=== PATIENT | male | born 1970 | race Caucasian/White ===

== ENCOUNTER 2016-06-23 07:47 | Emergency (ER) | payer OTHER ==
[2016-06-23 08:02] VITALS: BP 164/110; PULSE 78; RESP 18; TEMP 98; O2SAT 97
--- NOTE | 2016-06-23 08:38 | UCPHY ---
H & P Time Seen by Provider: 06/23/16 07:52 Patient Type: Established HPI/ROS: 46-year-old male presents complaining left foot pain and swelling that has been intermittent for several years his last episode was approximately 6 months ago this episode has been going on for the last 2-3 days. No fevers or chills no particular trauma. Review of systems General no fever no chills no weakness HEENT no eye pain no eye discharge. 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 Smoking Status: Never smoked Physical Exam: Alert and oriented in no acute distress nontoxic appearance, afebrile Atraumatic normocephalic Neck no JVD Lungs clear to auscultation, no respiratory distress Heart regular rate and rhythm Extremities no cyanosis clubbing edema Left foot-tenderness to palpation at ankle joint however no swelling no edema no ecchymosis no erythema Distal dorsal foot with a 3 x 3 cm area of erythema, no lymphangitic streaks, tenderness to palpation Good capillary refill Sensation intact, full range of motion of digits and ankle and knee Constitutional: Initial Vital Signs Temperature (C) 36.6 C 06/23/16 08:00 Heart Rate 78 06/23/16 08:00 Respiratory Rate 18 06/23/16 08:00 Blood Pressure 164/110 H 06/23/16 08:00 O2 Sat (%) 97 06/23/16 08:00 O2 Delivery Mode Room Air Allergies/Adverse Reactions: No Known Allergies Allergy (Unverified 11/22/15 15:45) Home Medications: Medication Instructions Recorded Lisinopril 10 mg PO DAILY #60 tablet 11/22/15 methylPREDNISolone [Medrol Dose 1 each PO AD #1 ea 06/23/16 Adeel] Medical Decision Making ED Course/Re-evaluation: Patient seen and evaluated for left foot pain and ankle pain intermittent over the last several years with his last episode being approximately 6 months ago No prior diagnosis of gout Lab sent CBC, sed rate, uric acid all within normal limits X-rays of foot and ankle negative for significant spurring or arthritis negative for soft tissue swelling Impression Possible gout Plan Medrol Dosepak walking boot Follow-up with podiatry and/or primary care physician - Data Points Laboratory Results: Laboratory Results 06/23/16 08:43 06/23/16 08:43 06/23/16 08:43 WBC 9.15 10^3/uL (3.80-9.50) RBC 4.98 10^6/uL (4.40-6.38) Hgb 15.0 g/dL (13.7-17.5) Hct 43.9 % (40.0-51.0) MCV 88.2 fL (81.5-99.8) MCH 30.1 pg (27.9-34.1) MCHC 34.2 g/dL (32.4-36.7) RDW 12.8 % (11.5-15.2) Plt Count 209 10^3/uL (150-400) MPV 10.8 fL (8.7-11.7) Neut % (Auto) 74.9 H % (39.3-74.2) Lymph % (Auto) 12.3 L % (15.0-45.0) Falls % (Auto) 11.7 % (4.5-13.0) Eos % (Auto) 0.2 L % (0.6-7.6) Baso % (Auto) 0.4 % (0.3-1.7) Nucleat RBC Rel Count 0.0 % (0.0-0.2) Absolute Neuts (auto) 6.84 H 10^3/uL (1.70-6.50) Absolute Lymphs (auto) 1.13 10^3/uL (1.00-3.00) Absolute Monos (auto) 1.07 H 10^3/uL (0.30-0.80) Absolute Eos (auto) 0.02 L 10^3/uL (0.03-0.40) Absolute Basos (auto) 0.04 10^3/uL (0.02-0.10) Absolute Nucleated RBC 0.00 10^3/uL (0-0.01) Immature Gran % 0.5 % (0.0-1.1) Immature Gran # 0.05 10^3/uL (0.00-0.10) ESR 15 MM/HR (0-15) Sodium 142 mEq/L (134-144) Potassium 4.5 mEq/L (3.5-5.2) Chloride 101 mEq/L (97-110) Carbon Dioxide 27 mEq/l (22-31) Anion Gap 14 mEq/L (8-16) BUN 12 mg/dL (7-23) Creatinine 1.2 mg/dL (0.7-1.3) Estimated GFR > 60 Glucose 84 mg/dL (70-100) Uric Acid 7.0 mg/dL (3.5-8.5) Calcium 9.4 mg/dL (8.5-10.4) Total Bilirubin 1.2 mg/dL (0.1-1.4) AST 20 IU/L (17-59) ALT 31 IU/L (21-72) Alkaline Phosphatase 74 IU/L (38-126) Total Protein 8.0 g/dL (6.3-8.2) Albumin 4.2 g/dL (3.5-5.0) Departure - Departure Disposition: Home, Routine, Self-Care Clinical Impression: Gout attack Condition: Good Instructions: Gout (ED), Low Purine Diet (ED) Referrals: Ervin Penn MD [Primary Care Provider] - As per Instructions Prescriptions: methylPREDNISolone [Medrol Dose Adeel] 1 each PO AD #1 ea - PQRS PQRS Measurement: na
[2016-06-23 08:54] LABS: % IMMATURE GRANULYOCYTES 0.5 % (0.0-1.1); ABSOLUTE IMMATURE GRANULOCYTES 0.05 10^3/uL (0.00-0.10); ADD DIFF? NO; ADD MORPH? NO; ADD SCAN? NO; ATYPICAL LYMPHOCYTE FLAG 10 (0-99); FRAGMENT RBC FLAG 0 (0-99); HEMATOCRIT 43.9 % (40.0-51.0); LEFT SHIFT FLG 0 (0-99); LIPEMIA HEMOLYSIS FLAG 90 (0-99); MEAN CELL HEMOGLOBIN 30.1 pg (27.9-34.1); MEAN CELL HEMOGLOBIN CONCENTR. 34.2 g/dL (32.4-36.7); MEAN CELL VOLUME 88.2 fL (81.5-99.8); MEAN PLATELET VOLUME 10.8 fL (8.7-11.7); PLATELET CLUMPS FLAG 0 (0-99); PLATELET COUNT 209 10^3/uL (150-400); RED BLOOD CELL COUNT 4.98 10^6/uL (4.40-6.38); RED CELL DISTRIBUTION WIDTH 12.8 % (11.5-15.2)
[2016-06-23 09:03] LABS: SEDIMENTATION RATE 15 MM/HR (0-15)
[2016-06-23 09:08] LABS: ALANINE AMINOTRANSFERASE 31 IU/L (21-72); ALBUMIN 4.2 g/dL (3.5-5.0); ALKALINE PHOSPHATASE 74 IU/L (38-126); ANION GAP 14 mEq/L (8-16); ASPARTATE AMINOTRANSFERASE 20 IU/L (17-59); BILIRUBIN,TOTAL 1.2 mg/dL (0.1-1.4); CALCIUM 9.4 mg/dL (8.5-10.4); CARBON DIOXIDE 27 mEq/l (22-31); CHLORIDE 101 mEq/L (97-110); CREATININE 1.2 mg/dL (0.7-1.3); GLOMERULAR FILTRATION RATE > 60; GLUCOSE 84 mg/dL (70-100); POTASSIUM 4.5 mEq/L (3.5-5.2); SODIUM 142 mEq/L (134-144)
--- NOTE | 2016-06-23 09:11 | DX ---
1. LEFT ANKLE, Three Views HISTORY: Pain, without trauma. FINDINGS: There is possibly a small ankle joint effusion. No fracture, arthritis or dislocation is id entified. The talar dome looks normal. There is no soft tissue gas or radiopaque foreign material. Ov erall mineralization is normal. IMPRESSION: Possible small ankle joint effusion. Otherwise negative.. 2. LEFT FOOT, 2 views HISTORY: Pain without trauma COMPARISON: None FINDINGS: Mineralization is normal. No evidence for arthritis.. No soft tissue calcification or soft tissue gas. No arthritis identified. IMPRESSION: No source for pain identified.
== END 2016-06-23 09:24 | disposition home or self-care (01) ==
LOC: CED 07:47
DX: M10.9 Gout, unspecified (principal); I10 Essential (primary) hypertension
CPT/HCPCS: 73610-PO; 73620-PO; 80053-PO; 84550-PO; 85025-PO; 85652-PO; 99214-PO; G0463-PO; L4386

== ENCOUNTER 2017-09-09 00:41 | Inpatient (IN) | payer OTHER ==
--- NOTE | 2017-09-09 00:53 | CPEKG ---
Heart Rate: 76 RR Interval: 789 P-R Interval: 192 QRSD Interval: 84 QT Interval: 368 QTC Interval: 414 P [place]: 52 QRS [place]: 10 T Wave [place]: 13 EKG Severity - BORDERLINE ECG - EKG Impression: SINUS RHYTHM EKG Impression: PROBABLE LEFT ATRIAL ABNORMALITY EKG Impression: T coving in V6, subtle, not seen an EKG from November of 2015 EKG Impression: BORDERLINE R WAVE PROGRESSION, ANTERIOR LEADS Electronically Signed By: Ben Wiley 09-Sep-2017 02:17:58
[2017-09-09] MEDS ORDERED: ASPIRIN 81 MG CHEWABLE TAB PO ONE (01:08)
[2017-09-09] MEDS ORDERED: LIDOCAINE 2% VISCOUS 15 ML UDCUP PO ONE (01:09)
[2017-09-09] MEDS ORDERED: DICYCLOMINE 10 MG CAP PO ONE (01:09)
[2017-09-09] MEDS ORDERED: MAG HYDROX/AL HYDROX/SIMETH 30 ML UDCUP PO ONE (01:09)
[2017-09-09] MEDS ORDERED: HYOSCYAMINE SULFATE 0.125 MG TAB PO ONE (01:12)
[2017-09-09] MEDS ORDERED: HYOSCYAMINE SULFATE 0.125 MG TAB ONE (01:16)
[2017-09-09] MEDS ORDERED: LORazepam 2 MG/ML INJ IVP ONE (01:25)
--- NOTE | 2017-09-09 01:26 | EDPHY ---
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 no nausea/diaphoresis/numbness or tingling Time Seen by Provider: 09/09/17 00:50 HPI/ROS: CHIEF COMPLAINT: chest discomfort HISTORY OF PRESENT ILLNESS: Chest discomfort, tightness now resolving This is a medically stable 47-year-old male with a prior history of hypertension and borderline LVH as seen on EKG this past March. Of note, is that he has not had an echocardiogram evaluation in light of that prior EKG. He has though been put on hypertension medicine and his office blood pressure was 117 systolic most recently. He was feeling well earlier in the day. 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 That said, he does not recall any specific injury or straining. He did go out to dinner although that was earlier in the day around 7:00 p.m. He went to bed at 11 but was unable to fall asleep before the onset of a mild chest tightness that began at approximately 11:30 p.m.. He thereby got up for some water, it went away transiently and then returned when he went to bed and laid on his left side, rehabilitation manager to later. It is been virtually present ever since, mild to moderate in nature and is only mild now at this point in time with a 1/10. While he did not have any shortness of breath or overt diaphoresis he did feel a little clammy. This is a tightness type sensation, localized to the central chest, does not radiate to the arms or jaw or any portion of the back whatsoever. It is nonpleuritic. He has never had this before. There is no sense of water brash. He is not want one to get reflux or acid peptic disease so he did not have anything else in the household to take. Did not take any aspirin. He did have a fall with the injury this past April. It was not so bad at that point that he had to have a knee immobilizer. He did seem more re-injury to while hiking approximately 2 weeks ago. Was wearing some form of neoprene sleeve with some placing to it but not a stiff splint per se. He was able to flex the knee somewhat. MRI and showed a torn ACL but no specific surgical date is planned. Cardiac Risk Factors: DM: No HTN: yes High Chol: No Smoking: No Family History: No, father with the liver and kidney transplant Obesity: yes SLE type illenss: No PE/DVT risk factors Prior DVT/PE: No Immobilization: No Splint/Cast: No did wear a brace on his recent knee injury but it was not a stiff brace. Surgery in past 3 months: no Family history of hypercoagulable syndrome: No Unilateral leg swelling: No Obesity: yes, Slight Hypertension yes Known Aortic aneurysm No Bicuspid aortic Valve No Aortic Valve disease No Family Hx of aortic dieseae No Polycystic Kidney Disease No Collagen vascular disease No Aortic Regurg Murmur No Aortic instrumentation recent No Blunt trauma, recent No REVIEW OF SYSTEMS: Constitutional: No fever, no chills. Eyes: No discharge ENT: No sore throat. Cardiovascular: See above Respiratory: No cough, shortness of breath, or wheezing. See above Gastrointestinal: No nausea vomiting or diarrhea. No abdominal pain. Genitourinary: No hematuria or frequency. Musculoskeletal: No back pain. Skin: No rashes. Neurological: No headache. 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 Afebrile. Normal phonation. No respiratory distress. Eyes: Pupils equal and round no pallor or injection. No icterus ENT, Mouth: Mucous membranes moist Pharynx without erythema or exudate. TM Clear. Neck: No adenopathy. Supple. No JVD. Trachea in midline. Respiratory: There are no retractions, lungs are clear to auscultation. Chest wall: Nontender to palpation. No crepitus. Cardiovascular: Regular rate and rhythm. Abdomen: Soft and nontender, no masses, bowel sounds normal. Femoral pulses equal. Neurological: Ox3. No motor weakness. Sensation intact. Gait nl. Skin: Warm and dry, no rashes. Musculoskeletal: No joint swelling. Extremities: No edema. Homans sign negative. No cords. Psychiatric: Normal affect. There is no agitation Constitutional: Initial Vital Signs Heart Rate 85 09/09/17 00:53 Respiratory Rate 21 H 09/09/17 00:53 Blood Pressure 171/111 H 09/09/17 00:53 O2 Sat (%) 93 09/09/17 00:53 O2 Delivery Mode Room Air Allergies/Adverse Reactions: No Known Allergies Allergy (Unverified 09/09/17 00:51) Home Medications: Medication Instructions Recorded Garlic 09/09/17 Losartan/Hydrochlorothiazide 09/09/17 [Losartan-Hctz 100-12.5 mg Tab] [place]-3/Dha/Epa/Fish Oil [Fish Oil 09/09/17 1,000 mg Softgel] Medical Decision Making - Diagnostics EKG Interpretation: His initial EKG shows mild T-wave coving laterally in V6. Somewhat different than that of November of 2015. Minimally so. Normal sinus rhythm. No Q-waves. R- wave progression is probably lead placement. See trace master for official reading Follow-up EKG done approximately 1 hr later showed resolution of the borderline changes in V6. Continued borderline R wave changes across the precordium. Essentially improved from the EKG 1 hr earlier. Imaging Results: Chest x-ray: Two view chest. Interpreted by [me, contemporaneously]. Films [viewed] by me on the PACS system. Normal mediastinum. Normal lung narayan. No effusions. Normal chest. Imaging: I viewed and interpreted images myself ED Course/Re-evaluation: He was given a initial dose of aspirin followed by a GI cocktail though at that point his discomfort was 1/10 prep. Later, when I had a conversation with the approximately half an hour later his discomfort had resolved completely and he was having no symptoms at that time. Initially he was also given a dose of Ativan 0.5 and his blood pressure did come down to 150/100 from the initial 170/110. Thereby an additional management consisted of nitropaste 1 in. Upon initial evaluation his perc score is 1, and the heart score pending troponin levels is 3. Thereby repeat troponins were arranged for, Ultimately the initial troponin is borderline at 0.05, bring his heart score of 4. Thus I called the admitting machine operator farmworker at [facility], Dr. Nguyen, and arranged for transfer. His O2 sat continued to be around 93 thus a little bit of Oxy was given as well as a D-dimer. His only other risk factor would be that of the recent bracing which was certainly was not a solid bracing to qualify as immobilization. This D-dimer was ultimately negative at less than 0.27. The BP settled nicely on the topical nitropaste to 137/98. Differential Diagnosis: Differential diagnosis includes but is not limited to the following: ACS, myocardial infarction, pneumothorax, pleurisy, pulmonary embolus, CHF, Pneumonia, bronchospasm, Asthma, anxiety, muscle strain. - Data Points Laboratory Results: 09/09/17 09/09/17 00:55 00:55 D-Dimer < 0.27 ug/mLFEU ug/mLFEU (0.00-0.50) Troponin I 0.051 ng/mL H ng/mL (0.000-0.034) Medications Given: Discontinued Medications Al Hydroxide/Mg Hydroxide (Maalox Susp) 30 ml PO EDNOW ONE Stop: 09/09/17 01:10 Last Admin: 09/09/17 01:24 Dose: 30 ml Aspirin (Aspirin) 324 mg PO EDNOW ONE Stop: 09/09/17 01:09 Last Admin: 09/09/17 01:12 Dose: 324 mg Dicyclomine HCl (Bentyl) 10 mg PO EDNOW ONE Stop: 09/09/17 01:10 Last Admin: 09/09/17 01:26 Dose: Not Given Hyoscyamine Sulfate (Levsin, Hyomax-Sl) 0.25 mg PO ONCE ONE Stop: 09/09/17 01:13 Last Admin: 09/09/17 01:24 Dose: 0.25 mg Lidocaine (Lidocaine 2% Viscous) 5 ml PO EDNOW ONE Stop: 09/09/17 01:10 Last Admin: 09/09/17 01:24 Dose: 5 ml Lorazepam (Ativan Injection) 0.5 mg IVP ONCE ONE Stop: 09/09/17 01:26 Last Admin: 09/09/17 01:32 Dose: 0.5 mg Nitroglycerin (Nitro-Bid 2%) 1 inch TP EDNOW ONE Stop: 09/09/17 02:05 Last Admin: 09/09/17 02:19 Dose: 1 inch Departure - Departure Disposition: [facility] Inpatient Acute Clinical Impression: Chest pain Qualifiers: Chest pain type: precordial pain Qualified Code(s): R07.2 - Precordial pain Hypertension Qualifiers: Hypertension type: essential hypertension Qualified Code(s): I10 - Essential ( primary) hypertension Condition: Good
[2017-09-09] MEDS ORDERED: ONDANSETRON DISINTEGRATING 4 MG TAB PO PRN (01:51)
[2017-09-09] MEDS ORDERED: ONDANSETRON 4 MG/2 ML VIAL IVP PRN (01:51)
[2017-09-09] MEDS ORDERED: NITROGLYCERIN 2% 1 GM PACKET TP ONE (02:04)
--- NOTE | 2017-09-09 03:01 | CPEKG ---
Heart Rate: 78 RR Interval: 769 P-R Interval: 192 QRSD Interval: 90 QT Interval: 372 QTC Interval: 424 P [place]: 56 QRS [place]: 12 T Wave [place]: 7 EKG Severity - BORDERLINE ECG - EKG Impression: SINUS RHYTHM EKG Impression: Coving in V6 seen in EKG 1 hours earlier has normalized. EKG Impression: BORDERLINE R WAVE PROGRESSION, ANTERIOR LEADS Electronically Signed By: Ben Wiley 09-Sep-2017 03:27:35
--- NOTE | 2017-09-09 03:46 | PDGENHP ---
History and Physical - Chief Complaint Chest pain - History of Present Illness 47 yo M w/ hx of HTN presents with chest pain. Patient went out to eat last evening. After getting home and laying down he began to notice central chest discomfort. He felt clammy but denies other associated symptoms. The pain was worst when laying on his left side and improved when he got up and walked around. At worst he rated the pain 5/10, the pain was very faint by the time he arrived to the [facility]. He is symptom free now. At the [facility] his BP was noted to be elevated and his troponin in the indeterminate range so he is being admitted for further work-up. History Information - Allergies/Home Medication List Allergies/Adverse Reactions: No Known Allergies Allergy (Unverified 09/09/17 00:51) Home Medications: Garlic 09/09/17 [Last Taken Unknown] Losartan/Hydrochlorothiazide [Losartan-Hctz 100-12.5 mg Tab] 09/09/17 [Last Taken Unknown] [place]-3/Dha/Epa/Fish Oil [Fish Oil 1,000 mg Softgel] 09/09/17 [Last Taken Unknown] I have personally reviewed and updated: family history, medical history - Past Medical History hypertension - Family History Positive for: CAD - Social History Smoking Status: Former smoker (Chewed tobacco for about 20 years) Alcohol Use: None Drug Use: None (Can valvular disease he the the the my Risk) Review of Systems Review of Systems: ROS: 10pt was reviewed & negative except for what was stated in HPI & below Physical Exam Physical Exam: Temp Pulse Resp BP Pulse Ox 37 C 77 18 151/94 H 95 09/09/17 02:40 09/09/17 02:40 09/09/17 02:40 09/09/17 02:40 09/09/17 02:40 O2 (L/minute) 1 Constitutional: no apparent distress, not in pain Eyes: PERRL, EOMI Ears, Nose, Mouth, Throat: moist mucous membranes, no oral mucosal ulcers Cardiovascular: regular rate and rhythym, no murmur, rub, or gallop Respiratory: no respiratory distress, clear to auscultation Gastrointestinal: normoactive bowel sounds, soft, non-tender abdomen Skin: warm, normal color Musculoskeletal: full muscle strength, no muscle tenderness Neurologic: AAOx3, CN II-XII Intact Psychiatric: interacting appropriately, not anxious Lab Data & Imaging Review D-Dimer < 0.27 ug/mLFEU (0.00-0.50) 09/09/17 00:55 Troponin I 0.051 ng/mL (0.000-0.034) H 09/09/17 00:55 Visualized and Interpreted Chest x-ray results: Yes Chest X-Ray results: no infiltrate Visualized and Interpreted EKG results: Yes EKG Interpretation: Positive for: normal sinsus rhythm Assessment & Plan Assessment: 47 yo M w/ HTN presents with chest pain. Plan: 1. Chest pain - Rather atypical from a cardiac standpoint in that pain was worse when laying on left side and improved with ambulation. However, obesity, tobacco use, and family history are pertinent risk factors. Initial troponin indeterminate at 0.05 and ECG without signs of acute ischemia. Of note, BP very elevated upon arrival to [facility] (171/111, MAP 131), which may be playing a role. He is now chest pain free. - Admit to PCU for observation - Monitor on telemetry, trend cardiac enzymes - Treadmill stress test ordered for inpatient risk stratification (may have to convert to nuclear if cannot tolerate 2/2 R knee injury) 2. Indeterminate troponin - Perhaps 2/2 LV strain from uncontrolled BP. ACS r/o as above. ECG without signs of acute ischemia, D-dimer negative. 3. Uncontrolled HTN - BP very elevated upon arrival to [facility] (171/111, MAP 131). Patient thinks he may have forgotten to take his BP meds yesterday morning. - Continue home medications Diet - NPO pending ACS r/o Code - Full Ppx - LMWH dispo - Admit under observation status
--- NOTE | 2017-09-09 10:51 | PDCARCONS ---
Cardiology Consult Reason for Consult: Chest discomfort, positive troponin, abnormal EKG Chief Complaint: Chest pain Requesting Physician: Dr. Deedee Hernandez History of Present Illness: 47-year-old very pleasant gentleman. I visited with him on 2 [facility]. Dr. Deedee Hernandez asked me to consult on him because of complaints of chest pain. Last night after dinner he started having retrosternal burning chest discomfort. This is different than his usual GERD symptoms. Pain was described as burning and some heaviness in the retrosternal area which lasted until he came to the emergency department and received GI cocktail. He also received some Valium. I was asked to visit with him because his troponin levels were elevated this morning. At the time of examination, patient is pain-free and does not offer any complaints History Information - Allergies/Home Medication List Allergies/Adverse Reactions: No Known Allergies Allergy (Unverified 09/09/17 00:51) Home Medications: Losartan/Hydrochlorothiazide [Losartan-Hctz 100-25 mg Tab] 1 each PO DAILY 09/09 [Last Taken 09/07/17] I have personally reviewed and updated: family history, medical history, social history, surgical history Past Medical History: - Past Medical History hypertension - Surgical History Reports: no pertinent surgical hx - Social History Smoking Status: Former smoker (Chewed tobacco for about 20 years) Alcohol Use: None (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 drinks a day but has cut back over the last 1-2 years) Drug Use: None (Can valvular disease he the the the my Risk) Physical Exam Physical Exam: Temp Pulse Resp BP Pulse Ox 36.7 C 61 9 L 122/81 H 95 09/09/17 08:00 09/09/17 08:00 09/09/17 08:00 09/09/17 08:00 09/09/17 08:00 O2 (L/minute) 1 Constitutional: no apparent distress, appears nourished, not in pain Eyes: PERRL, EOMI Ears, Nose, Mouth, Throat: moist mucous membranes, hearing normal Cardiovascular: regular rate and rhythym, no murmur, rub, or gallop Respiratory: no respiratory distress, no rales or rhonchi Gastrointestinal: normoactive bowel sounds, soft, non-tender abdomen Genitourinary: no bladder fullness Skin: warm, normal color Musculoskeletal: full muscle strength Neurologic: AAOx3 Psychiatric: interacting appropriately, not anxious, not encephalopathic Lab and Imaging 09/09/17 05:45 D-Dimer < 0.27 ug/mLFEU (0.00-0.50) 09/09/17 00:55 Sodium 142 mEq/L (135-145) 09/09/17 05:45 Potassium 4.0 mEq/L (3.5-5.2) 09/09/17 05:45 Chloride 103 mEq/L (97-110) 09/09/17 05:45 Carbon Dioxide 26 mEq/l (22-31) 09/09/17 05:45 Anion Gap 13 mEq/L (8-16) 09/09/17 05:45 BUN 16 mg/dL (7-23) 09/09/17 05:45 Creatinine 1.1 mg/dL (0.7-1.3) 09/09/17 05:45 Estimated GFR > 60 09/09/17 05:45 Glucose 98 mg/dL (70-100) 09/09/17 05:45 Calcium 9.0 mg/dL (8.5-10.4) 09/09/17 05:45 Troponin I 0.493 ng/mL (0.000-0.034) H 09/09/17 05:45 Visualized and Interpreted EKG results: Yes EKG additional interpertation: Initial EKG normal sinus rhythm with some ST depression in lead V6 which resolved after 1 hr of arrival to the emergency department A/P Assessment: 1. Non ST-elevation myocardial infarction 2. Hypertension Plan: 47-year-old male presenting with non ST elevation myocardial infarction. 1st troponin was 0.05, 2nd troponin is 0.48. He had chest discomfort with dynamic EKG changes. Echocardiogram shows mild inferolateral hypokinesis at the base. Given his history of hypertension, age, abnormal EKG, positive troponin and mildly abnormal echocardiogram, he meets criteria for non ST elevation [place]. Diagnostic and treatment options including perfusion stress test versus coronary angiography were discussed with him. Given above findings I recommend coronary angiography. Risks of the procedure including , mi, CVA, cardiac tamponade, vascular access complications, anaphylaxis, renal failure etc I were discussed with him at length. As an alternative we also discussed medical therapy only without coronary angiography. I told him that he will be started on beta-blockers and statins regardless and these should be continued lifelong. Noting above options, he wants to move forward with coronary angiography. This will be scheduled this morning after I contact my interventional partner Dr. Oswaldo Michelle
[2017-09-09] MEDS: ENOXAPARIN 40 MG/0.4 ML SYR SC SCH ×2 (10:56→11:37)
--- NOTE | 2017-09-09 10:58 | HOSPPROG ---
Hospitalist Progress Note Assessment/Plan: 47-year-old man presents with chest pain. He has risk factors including hypertension and tobacco use. He also has a relative with heart disease # chest pain and elevated troponin. Discussed with Cardiology he will proceed to angiogram today. * Angiogram * Risk factor modification, patient will need statin beta-ju if he has heart disease # hypertension continue usual medications monitor Subjective: Patient new to me and chart reviewed. Had 2 episodes of chest pain yesterday the 2nd of which brought him into the emergency department he has been pain-free since then Objective: Vital Signs Temp Pulse Resp BP Pulse Ox 36.7 C 61 9 L 122/81 H 95 09/09/17 08:00 09/09/17 08:00 09/09/17 08:00 09/09/17 08:00 09/09/17 08:00 Laboratory Results 09/09/17 05:45 09/08/17 09/09/17 09/10/17 05:59 05:59 05:59 Intake Total 200 Balance 200 - Physical Exam Constitutional: no apparent distress, appears nourished, not in pain Eyes: PERRL, EOMI Ears, Nose, Mouth, Throat: moist mucous membranes Cardiovascular: regular rate and rhythym, no murmur, rub, or gallop Respiratory: no respiratory distress, clear to auscultation Gastrointestinal: normoactive bowel sounds, soft, non-tender abdomen Genitourinary: no bladder fullness Skin: warm Musculoskeletal: full muscle strength Neurologic: AAOx3 Psychiatric: interacting appropriately, not anxious ICD10 Worksheet Patient Problems: Problems Problem Status Onset Chest pain Acute Hypertension Acute
[2017-09-09] MEDS ORDERED: LIDOCAINE 1% 300 MG/30 ML SDV ONE (11:36)
[2017-09-09] MEDS ORDERED: IOPAMIDOL (ISOVUE-370) 150 ML BTL IV ONE ×2 (11:37→12:39)
[2017-09-09] MEDS ORDERED: VERAPAMIL 5 MG/2 ML VIAL ONE (11:37)
[2017-09-09] MEDS ORDERED: fentaNYL 100 MCG/2 ML INJ ONE (11:37)
[2017-09-09] MEDS ORDERED: HEPARIN 10,000 UNIT/10 ML MDV (1,000 UNIT/ML) ONE (11:37)
[2017-09-09] MEDS ORDERED: MIDAZOLAM 2 MG/2 ML VIAL ONE (11:37)
--- NOTE | 2017-09-09 11:41 | ECHO ---
[email or web address] [address] [address] Main: [phone] Fax: Transthoracic Echocardiogram Name: ILANA OSULLIVAN MR#: [id number] Study Date: 09/09/2017 Study Time: 09:59 AM Date of : 1970 Age: 47 year(s) Height: 182.9 cm (72 in.) Weight: 105.69 kg (233 lb.) BSA: 2.27 m2 Gender: Male Examination: Echo Indication: Chest Pain Image Quality: Adequate Contrast: Requested by: London Madsen BP: 122 mmHg/81 mmHg Heart Rate: Rhythm: Normal sinus rhythm Indication: Chest Pain Procedure Staff Gas Regulator Repairer: oR Sewell RD Reading Physician: London Madsen MD Requesting Provider: Conclusions: Normal global systolic LV function. Subtle posterolateral hypokinesis noted in the short axis view. Mild to moderate mitral regurgitation. Measurements: Chambers Valvular Assessment AV/MV Valvular Assessment TV/PV Normal Normal Normal Name Value Range Name Value Range Name Value Range Ao Ariane (MM): 3.8 cm (2.2 cm-3.7 AV Vmax: 1.27 m/s (1 m/s-1.7 PV Vmax: 0.94 m/s (0.6 m/s-0.9 cm) m/s) m/s) IVSd (2D): 1.0 cm (0.6 cm-1.1 AV maxP mmHg ( - ) PV PGmax: 4 mmHg ( - ) cm) LVOT Vmax: 1.16 m/s (0.7 m/s-1.1 LVDd (2D): 4.8 cm (4.2 cm-5.9 m/s) cm) MV E Vmax: 0.59 m/s ( - ) LVDs (2D): 3.2 cm (2.1 cm-4 MV A Vmax: 0.74 m/s ( - ) cm) MV E/A: 0.80 ( - ) LVPWd (2D): 0.9 cm (0.6 cm-1 cm) LVEF (BP): 59 % (>=55 %) RVDd(2D): 2.2 cm (1.9 cm-3.8 cmmm) Continued Measurements: Chambers Valvular Assessment AV/MV Name Value Name Value LADs: 3.3 cm MV DecTime: 264 m/s LADs Lon.8 cm LA Area: 15.6 cm2 LA Volume: 54 ml Patient: ILANA OSULLIVAN Study Date: 09/09/2017 Page 1 of 2 09:59 AM LA Volume Index: 23.8 ml/m2 RA Area: 10.7 cm2 Additional Vessels Name Value Ao Ascendin.1 cm Findings: Left Ventricle: Normal size left ventricle. No LV hypertrophy. Normal global systolic LV function. EF is 59 %. Normal diastolic LV function. Subtle posterolateral hypokinesis noted in the short axis view. Right Ventricle: Normal size right ventricle. Normal RV function. Left Atrium: The left atrium is normal in size. Right Atrium: The right atrium is normal in size. Mitral Valve: The mitral valve is normal in appearance and function. Mild to moderate mitral regurgitation. No mitral stenosis is present. Aortic Valve: The aortic valve is tri-leaflet and functions normally. Trivial aortic valve regurgitation. No aortic valve stenosis is present. Tricuspid Valve: The tricuspid valve is normal in appearance and function. There is no significant tricuspid valve regurgitation. The pulmonary artery pressure is normal. Pulmonic Valve: The pulmonic valve is normal in appearance and function. There is no pulmonic regurgitation seen. Aorta: The aorta is normal. Normal size aortic root measuring 3.8 cm. Normal size ascending aorta measuring 3.1 cm. IVC: The IVC is normal sized. Pericardium: No pericardial effusion. (No Signature Object) Patient: ILANA OSULLIVAN Study Date: 09/09/2017 Page 2 of 2 09:59 AM [id number]
[2017-09-09] MEDS: ATORVASTATIN CALCIUM 20 MG TAB PO SCH (11:43)
[2017-09-09] MEDS: METOPROLOL SUCCINATE XR 25 MG TAB PO SCH (11:43)
[2017-09-09] MEDS: LOSARTAN/HCTZ 50/12.5 1 TAB PO SCH (11:43)
[2017-09-09] MEDS: ASPIRIN EC 325 MG TAB PO SCH (11:44)
--- NOTE | 2017-09-09 12:01 | PDPROPOC ---
Sedation Plan of Care Sedation Plan of Care: vital signs stable, mental status noted, patient educated of risks, benefits, alternatives, patient can tolerate sedation ASA Classification: ASA 2 Planned drugs: fentanyl, midazolam Mallampati Score: Class 1 Mallampati Reference Image: Patient passed 3-3-2 rule?: Yes
[2017-09-09] MEDS ORDERED: TICAGRELOR 90 MG TAB ONE (12:45)
[2017-09-09] MEDS ORDERED: NITROGLYCERIN 1,500 MCG/15 ML VIAL MISC ONE (12:53)
[2017-09-09] MEDS ORDERED: NITROGLYCERIN 0.4 MG BTL SL PRN (13:21)
[2017-09-09] MEDS ORDERED: TICAGRELOR 90 MG TAB PO ONE (13:21)
[2017-09-09] MEDS ORDERED: ATROPINE SULFATE 1 MG/10 ML SYR IVP PRN (13:21)
--- NOTE | 2017-09-09 13:28 | PDDXCAT ---
Diagnostic Cath Note - . Date: 09/09/17 Ssis Etl Developer: Miguel Angel Indication: other (NON STEMI) - Procedure Access: right wrist Procedure: left heart catheterization, coronary angiography, left ventriculogram - Materials Left Heart Cath size: 5F Left Heart Cath materials: standard multipack (JL4, JR4, pigtail) - Findings-Left Heart Catheterization LM: Unobstructed LAD: Unobstructed LCX: 100% occluded in the body. RCA: 40% proximal RCA stenosis. 40% distal RCA stenosis. EDP: 15 mm of mercury LVEF: 60% Wall motion: Mild inferolateral hypokinesis Complications: None Estimated blood loss: <50ml Closure method: TR Band Assessment: Non ST segment elevation myocardial infarction with ongoing chest pressure and occlusion of the circumflex artery. Nonobstructive atherosclerosis involving the right coronary artery. Normal LV function with normal filling pressures. Plan: PCI Intervention: Procedure: PCI and stenting of the dominant circumflex artery. After reviewing diagnostic angiogram shows like to proceed with emergent PCI. Patient was anticoagulated with heparin. Therapeutic ACT was confirmed at 330. Using a 6 Urdu EBU 3.5 guiding catheter the left main coronary selectively intubated. Using a 0.014 intuition wire the stenosis was crossed. Using a 2 mm x 12 compliant balloon single inflation was performed reestablishing antegrade flow. Attempts at crossing with a 2.5 x 12 mm synergy stent were made but failed. There was poor guiding support with prolapse of the wire out of the vessel. The guide catheter was replaced with a 6 Urdu EBU 3.75 guiding catheter. Using a 0.014 agricultural aircraft pilot 50 wire the stenosis was read crossed. The lesion was re-angioplasty using a 2 mm balloon. There was significant improvement in distal flow. 2.5 x 12 mm synergy stent was placed. It was deployed using a single inflation. Repeat angiogram shows sewed dissection distal. 2.25 x 8 mm synergy stent was placed distally and deployed using a single inflation. Stent balloon was used to cover the overlap. 2.75 noncompliant balloon was used at high pressure within both stents. Patient was administered intracoronary nitroglycerin. Final orthogonal angiogram showed DIAMANTE grade 3 flow. Following completion of this procedure left ventriculogram was performed. For details please see above. Conclusions: Non ST segment elevation myocardial infarction with thrombotic occlusion of the circumflex artery status post successful PCI and stenting. New His patient became pain-free after initial inflation. He has taken to telemetry for continued care. Aggressive secondary prevention. Dual antiplatelet therapy with aspirin and Brilinta. High-dose statin therapy with 80 mg of atorvastatin. Continue ARB and beta-ju. Sedation: 2 mg Versed 100 mcg of fentanyl. Radiation 1440 mGy. 19.5 min of fluoroscopy. Contrast: 340 cc. Patient Problems: Problems Problem Status Onset Chest pain Acute Hypertension Acute
--- NOTE | 2017-09-09 13:35 | CPEKG ---
Heart Rate: 64 RR Interval: 938 P-R Interval: 200 QRSD Interval: 82 QT Interval: 400 QTC Interval: 413 P [place]: 35 QRS [place]: 33 T Wave [place]: 24 EKG Severity - ABNORMAL ECG - EKG Impression: SINUS RHYTHM EKG Impression: ABNRM R PROG, CONSIDER ASMI OR LEAD PLACEMENT Electronically Signed By: Saad Garcia 09-Sep-2017 20:12:45
--- NOTE | 2017-09-09 14:01 | PDMN ---
Medical Necessity Medical necessity: C/M review: Patient meets ISAURA dueñas under MCG M-89 chest pain, M-230 Myocardial infarction: Acute NSTEMI, elevated troponins 0.051 , 0.493, requiring Cardiology consult, planned cardiac catheterization, possible PCI ongoing cardiac monitoring, close monitoring, comorbid two episodes of chest pain prior to this admission, hypertension, tobacco use. MD anticipates > 2 MN LOS for ongoing med nec for eval and TX of above.
[2017-09-09] MEDS: ACETAMINOPHEN 325 MG TAB PO PRN (15:18)
--- NOTE | 2017-09-09 16:39 | ASMTCMCOM ---
CM Note CM Note Notes: 47yr old male admitted for CP, HTN. To have an ECHO and and go to electroplating laborer today. CM to follow. May not have discharge needs. Date Signed: 09/09/2017 04:39 PM Electronically Signed By:Nery Rogel LCSW
[2017-09-10] MEDS: TICAGRELOR 90 MG TAB PO SCH ×2 (01:26→09:34)
[2017-09-10 04:11] LABS: PLATELET COUNT 212 10^3/uL (150-400)
[2017-09-10] MEDS: ACETAMINOPHEN 325 MG TAB PO PRN (04:25)
[2017-09-10 07:50] VITALS: BP 100/62
--- NOTE | 2017-09-10 08:50 | CPEKG ---
Heart Rate: 59 RR Interval: 1017 P-R Interval: 196 QRSD Interval: 80 QT Interval: 404 QTC Interval: 401 P [place]: 31 QRS [place]: 17 T Wave [place]: 8 EKG Severity - NORMAL ECG - EKG Impression: SINUS RHYTHM EKG Impression: ST ELEV, PROBABLE NORMAL EARLY REPOL PATTERN, BUT CANNOT RULE OUT HYPERACUTE T EKG Impression: WAVE OF ISCHEMIA Electronically Signed By: Cheyenne Ceballos 10-Sep-2017 12:02:14
[2017-09-10] MEDS ORDERED: ATORVASTATIN CALCIUM 40 MG TAB PO SCH (09:00)
[2017-09-10] MEDS ORDERED: NON-FORMULARY NEW DRUG (Losartan/Hydrochlorothiazide [Losartan-Hctz 100-25 Mg Tab] 1 EACH) PO SCH (09:00)
[2017-09-10] MEDS: ASPIRIN EC 325 MG TAB PO SCH (09:34)
[2017-09-10] MEDS: LOSARTAN/HCTZ 50/12.5 1 TAB PO SCH (09:34)
[2017-09-10] MEDS: METOPROLOL SUCCINATE XR 25 MG TAB PO SCH (09:34)
[2017-09-10] MEDS: ATORVASTATIN CALCIUM 20 MG TAB PO SCH (09:58)
--- NOTE | 2017-09-10 10:26 | SOAPPROG ---
CINDY Progress Note Assessment/Plan: Assessment: 1. Non-Q-wave myocardial infarction. 2. Status post PCI of the circumflex artery with stenting. 3. Hypertension. 4. Hyperlipidemia. Procedure: PCI and stenting of the circumflex in the setting of non-Q-wave myocardial infarction 09/09/2017. Echocardiogram 09/09/2017. Impression: Uncomplicated PCI and stenting of the circumflex artery in the setting of a non-Q-wave myocardial infarction. Mild LV dysfunction with mild elevation in troponin. He is significantly improved with resolution of chest discomfort. He has had no significant dysrhythmia. He is hemodynamically stable tolerating good medical therapy well. I have spent 30 min with him this morning discussing rationale for each of his medications and he is ready for discharge. Will plan for outpatient follow-up in 1 week, cardiac rehabilitation. Aggressive secondary prevention. 09/10/17 10:23 Subjective: No chest pain. Cardiac review of systems is negative for chest pain, shortness of breath, PND , orthopnea, palpitations, syncope, near syncope, edema. Objective: Vital Signs Temp Pulse Resp BP Pulse Ox 36.7 C 52 L 14 100/62 94 09/10/17 07:48 09/10/17 07:48 09/10/17 07:48 09/10/17 07:48 09/10/17 07:48 Laboratory Results 09/10/17 03:32 09/10/17 03:32 09/09/17 09/10/17 09/11/17 05:59 05:59 05:59 Intake Total 200 1720 Output Total 0 Balance 200 1720 - Time Spent With Patient Time Spent With Patient: 35 m Physical Exam - Physical Exam General Appearance: alert, no apparent distress EENT: PERRL/EOMI, normal ENT inspection Neck: non-tender, full range of motion Respiratory: chest non-tender, lungs clear, normal breath sounds Cardiac/Chest: normal peripheral pulses, regular rate, rhythm, No edema, No gallop, No JVD Peripheral Pulses: 1+: carotid (R), carotid (L), femoral (R), femoral (L), dorsalis-pedis (R), dorsalis-pedis (L) Abdomen: normal bowel sounds, non-tender, soft Back: Normal inspection Skin: normal color, warm/dry Neuro/Psych: no motor/sensory deficits, alert, oriented x 3, No facial droop ICD10 Worksheet Patient Problems: Problems Problem Status Onset Chest pain Acute Hypertension Acute Review of Systems - Review of Systems Constitutional: denies: chills, fever EENTM: no symptoms reported Respiratory: shortness of breath. denies: cough, wheezing Cardiac: no symptoms reported Gastrointestinal/Abdominal: no symptoms reported Genitourinary: no symptoms Musculoskelatal: no symptoms Skin: no symptoms Neurological: no symptoms Hematologic/Lymphatic: no symptoms reported
--- NOTE | 2017-09-10 10:30 | GDS ---
[f rep st] DISCHARGE SUMMARY DIAGNOSES: 1. Coronary artery disease, non ST elevated myocardial infarction. 2. Hypertension. 3. Tobacco use. PROCEDURES DONE: 1. Left heart catheterization through the right wrist. Showed 100% occlusion in the left circumflex , 40% in the right RCA. 2. Echocardiogram. CONSULTATION: Oswaldo Michelle MD. HOSPITAL COURSE: The patient is a 47-year-old with a history of hypertension who comes in with chest pain. Initially, he did have a bump in his troponins. He was monitored overnight and remained ches t pain free. The next day he underwent angiogram with the above findings. A stent was placed and he was monitored an additional night. He did well and is ready for discharge home. Dr. Michelle will follow up with him as an outpatient. CONDITION ON DISCHARGE: Good. Vital signs are stable. DISCHARGE MEDICATIONS: Please see discharge medication form. FOLLOWUP INSTRUCTIONS: He will follow up with [facility]. TOTAL TIME: Spent with patient on day of discharge in coordination of care was 35 minutes. /[id number]/MODL
--- NOTE | 2017-09-10 11:59 | ASDISCHSUM ---
Discharge Information Plan Status:Home with No Needs Medically Cleared to Leave:09/10/2017 Discharge Date:09/10/2017 CM D/C Disposition:Home, Routine, Self-Care ADT D/C Disposition:Home, Routine, Self-Care Projected Discharge Date:09/10/2017 Transportation at D/C: Discharge Delay Reason: Follow-Up Date:09/10/2017 Discharge Slot: Final Diagnosis:Cp, HTN Placement Information Patient Contact Information Contact Name:MARQUES Relationship: Address:[address] Home Phone: City:[facility] Phone: State/Zip Code:[place] [address] Email: Financial Information Financial Class:[employer] Primary Plan Desc:FLASH PINEDA Primary Plan Number:[id number] Secondary Plan Desc: Secondary Plan Number: Assessment Information LACE LACE Length of stay for Answers: 1 day current admission Acuity / Level of Answers: Yes Care: Did the patient have an inpatient admission? Comorbidities - select Answers: Other Notes: HTN, CP all that apply # of Emergency department Answers: 1-2 visits in the last 6 months Social determinants Answers: History of substance abuse (ETOH, street drugs, prescription drugs, etc.) Score: 9 Date Signed: 09/10/2017 11:56 AM Electronically Signed By:Joann Mariee RN [facility] CM Progress Note CM Note CM Note Notes: 47yr old male admitted for CP, HTN. To have an ECHO and and go to systems testing laboratory technician today. CM to follow. May not have discharge needs. Date Signed: 09/09/2017 04:39 PM Electronically Signed By:Nery Rogel LCSW Case Management Discharge Plan Note Case Management Discharge Discharge Order Complete? Answers: Yes Patient to Obtain Answers: Independently Medications Transportation Arranged Answers: Family/Friends Family Notified Answers: Yes Notes: in room Discharge Comments Notes: 09/10/2017 Case Management Note Met pt and during interdisciplinary rounds this morning. There are no identified case management d/c needs. Pt to d/c independent with follow up as directed. to transport home. Date Signed: 09/10/2017 11:58 AM Electronically Signed By:Joann Mariee RN Intervention Information
[2017-09-11] MEDS ORDERED: ASPIRIN EC 81 MG TAB PO SCH (09:00)
== END 2017-09-10 12:21 | disposition home or self-care (01) | DRG 247 ==
LOC: CED 00:41 → CEDHOLD 01:51 → OBSVTOIN 01:51 → F2W 03:17
PROVIDERS: ADMIT Student in an Organized Health Care Education/Training Program; ATTEND Internal Medicine
DX: I21.4 Non-ST elevation (NSTEMI) myocardial infarction (principal); I10 Essential (primary) hypertension; E78.5 Hyperlipidemia, unspecified; Z87.891 Personal history of nicotine dependence; S83.519A Sprain of anterior cruciate ligament of unspecified knee, initial encounter; W19.XXXA Unspecified fall, initial encounter; Y93.01 Activity, walking, marching and hiking; Z82.49 Family history of ischemic heart disease and other diseases of the circulatory system
CPT/HCPCS: 71046-PO; 80048-PO; 84484-PO; 85378-PO; 96374; C1725; C1769; C1874; C1887; C9600; C9606; J1644; J1650; J2060; J2250; J3010; Q9967

== ENCOUNTER 2017-09-14 16:24 | Emergency (ER) | payer OTHER ==
[2017-09-14 16:31] VITALS: BP 155/89
--- NOTE | 2017-09-14 17:49 | EDPHY ---
H & P Time Seen by Provider: 09/14/17 17:28 HPI/ROS: HPI Right knee pain, concerned about DVT. 47-year-old male by private vehicle. This patient just underwent a coronary angiogram with stent placement in his circumflex artery on SundaySeptember 10. He has a history of chronic knee pain secondary to an injury involving the medial meniscus and patellar ligament. He reports that he has on and off pain and some chronic swelling to the right knee. He reports that he was at cardiac rehab today. He was on the bike. He reports that the pain in the right knee seemed more than usual but this same quality. He is concerned about a DVT given his recent procedure and hospitalization. He denies any fever. No shortness of breath. No other complaints. ROS: Constitutional: No fever, no chills. No weakness. Respiratory: No cough. No shortness of breath. Cardiac: No chest pain, no palpitations. Gastrointestinal: No abdominal pain, no vomiting, no diarrhea. Musculoskeletal: No back pain. No neck pain. As above. No other extremity pain. Skin: No rashes. Neurological: No headache. No focal weakness or altered sensation. Past medical history: Hypertension. As above. Social history: Nonsmoker. Here by himself. Denies alcohol. Physical Exam: General Appearance: Alert, no distress. This patient is responding to questions appropriately and in full sentences. This patient appears well- hydrated and well-nourished. Eyes: Pupils equal and round no pallor or injection. No lid edema, erythema or injection. Right lower extremity exam: There is a subtle effusion superior aspect of the right knee. No warmth, no erythema. The knee joint is stable to valgus and varus stress testing as well as anterior and posterior drawer testing. There is no significant asymmetry in comparison of the right lower extremity the left lower extremity. The right lower extremity is neurovascularly intact. Neurological: Motor sensory function is grossly intact. Cranial nerves are normal. Skin: Warm and dry, no rashes. Musculoskeletal: As above. Extremities are symmetrical except noted. All joints range without pain or impingement. Psychiatric: No agitation. No depression. Database: EKG: Imaging: Right lower extremity Doppler ultrasound: Negative for DVT or other pathology. Results were discussed with staff radiologist Dr. Nicho Dickinson. Procedures: Emergency department course: Vital signs reviewed. He is moderately hypertensive. Vital signs otherwise normal. He consents for right lower extremity ultrasound to evaluate for DVT. 6:35 p.m., patient re-evaluated. Resting comfortably at this time. Results of his ultrasound were discussed with him. He feels comfortable going home at this time and I feel he is safe for discharge. Follow-up and return to emergency department precautions have been reviewed with him. All of his questions were answered. He was discharged in good condition. Differential Diagnosis: The differential diagnosis on this patient includes but is not limited to chronic right knee pain with history of right knee injury. Acute fracture, subluxation, dislocation, gouty arthritis, pseudogout, septic arthritis, DVT unlikely. This represents a partial list of diagnoses considered. These considerations are based on history, physical exam, past history, reassessment and diagnostic testing. Smoking Status: Former smoker Constitutional: Initial Vital Signs Temperature (C) 37.0 C 09/14/17 16:28 Heart Rate 76 09/14/17 16:28 Respiratory Rate 16 09/14/17 16:28 Blood Pressure 155/89 H 09/14/17 16:28 O2 Sat (%) 97 09/14/17 16:28 O2 Delivery Mode Room Air Allergies/Adverse Reactions: No Known Allergies Allergy (Unverified 09/09/17 00:51) Home Medications: Medication Instructions Recorded Losartan/Hydrochlorothiazide 1 each PO DAILY 09/09/17 [Losartan-Hctz 100-25 mg Tab] Aspirin EC [Aspirin EC 81 mg (*)] 81 mg PO DAILY tab 09/10/17 Atorvastatin Calcium [Lipitor 40 80 mg PO DAILY #30 tab 09/10/17 mg (*)] Metoprolol Succinate Xr [Toprol Xl 25 mg PO DAILY #30 tab 09/10/17 25 mg (*)] Nitroglycerin [Nitrostat 0.4 mg 0.4 mg SL ONCE PRN #1 btl 09/10/17 (*)] Ticagrelor [Brilinta] 90 mg PO BID #60 tab 09/10/17 Medical Decision Making - Diagnostics Imaging Results: Imaging Impressions Extremity Venous Study 09/14/17 17:30 Impression: No deep venous thrombosis right leg. Results called and discussed with Kathleen Augustin MD at 09/14/2017 18:30. Departure - Departure Disposition: Home, Routine, Self-Care Clinical Impression: Right knee pain Condition: Good Instructions: Knee Pain (ED) Additional Instructions: Read and follow provided instructions. Follow-up with your primary care physician on Sunday for re-evaluation of your right knee. Ibuprofen dosin mg every 6 hours with meals for the next 3 days only. Take only as needed for pain. Return to the emergency department for worsening pain, swelling, fever, redness to the knee or other serious concerns. Referrals: NONE *PRIMARY CARE P,. [Primary Care Provider] - As per Instructions
== END 2017-09-14 18:41 | disposition home or self-care (01) ==
DX: M25.561 Pain in right knee (principal); I10 Essential (primary) hypertension; Z79.82 Long term (current) use of aspirin; Z87.891 Personal history of nicotine dependence

== ENCOUNTER 2017-10-04 11:28 | Observation (INO) | payer OTHER ==
--- NOTE | 2017-10-04 11:40 | CPEKG ---
Heart Rate: 63 RR Interval: 952 P-R Interval: 184 QRSD Interval: 86 QT Interval: 392 QTC Interval: 402 P [place]: 42 QRS [place]: 26 T Wave [place]: 25 EKG Severity - NORMAL ECG - EKG Impression: SINUS RHYTHM Electronically Signed By: Azra Juarez 04-Oct-2017 15:00:55
[2017-10-04 11:48] LABS: PLATELET COUNT 204 10^3/uL (150-400)
--- NOTE | 2017-10-04 11:52 | EDPHY ---
H & P Stated Complaint: chest tightness/fatigue/stent placed 3 wks ago Time Seen by Provider: 10/04/17 11:37 HPI/ROS: CHIEF COMPLAINT: Chest pain HISTORY OF PRESENT ILLNESS: 47-year-old male with coronary artery disease, s/p circumflex stent placement 3 weeks ago, presents with chest pain and diaphoresis. He was doing light activity at work this morning at 1000 when he developed diaphoresis, associated with lower central chest discomfort. The chest discomfort is described as a burning sensation and somewhat different from the ACS symptoms. However the discomfort is in the same place. He continues to have very slight discomfort. No other associated symptoms. No alleviating or aggravating factors. He is taking Brilinta and aspirin. REVIEW OF SYSTEMS: complete 10 point ROS negative except at noted in the HPI - Personal History Current Tetanus/Diphtheria Vaccine: Yes - Medical/Surgical History Hx Asthma: No Hx Chronic Respiratory Disease: No Hx Diabetes: No Hx Cardiac Disease: Yes Hx Renal Disease: No Hx Cirrhosis: No Hx Alcoholism: No Hx HIV/AIDS: No Hx Splenectomy or Spleen Trauma: No Other PMH: HTN. circumflex occlusion 09/19. gout/cardiac stent - Social History Smoking Status: Former smoker - Physical Exam Exam: General Appearance: Alert, pleasant Eyes: Pupils equal and round, no conjunctival pallor or injection ENT, Mouth: Mucous membranes moist Neck: Normal inspection Respiratory: Lungs are clear to auscultation Cardiovascular: Regular rate and rhythm, no murmur Gastrointestinal: Abdomen is soft and nontender Neurological: A&O, nonfocal exam Skin: Warm and dry, no rash Extremities: Nontender, no pedal edema Psychiatric: Mood and affect normal Constitutional: Initial Vital Signs Temperature (C) 36.8 C 10/04/17 11:30 Heart Rate 66 10/04/17 11:30 Respiratory Rate 18 10/04/17 11:30 Blood Pressure 163/96 H 10/04/17 11:30 O2 Sat (%) 96 10/04/17 11:30 O2 Delivery Mode Room Air Allergies/Adverse Reactions: No Known Allergies Allergy (Verified 10/04/17 11:29) Home Medications: Medication Instructions Recorded Nitroglycerin [Nitrostat 0.4 mg 0.4 mg SL ONCE PRN #1 btl 09/10/17 (*)] Aspirin EC [Aspirin EC 81 mg (*)] 81 mg PO DAILY@0730 10/04/17 Atorvastatin Calcium [Lipitor 40 80 mg PO DAILY@72910/04/17 mg (*)] Losartan Potassium 100 mg PO DAILY@72910/04/17 Metoprolol Succinate Xr [Toprol Xl 25 mg PO DAILY@72910/04/17 25 mg (*)] Ticagrelor [Brilinta] 90 mg PO BID@729,192910/04/17 amLODIPine BESYLATE [Norvasc 5 mg 5 mg PO DAILY@192910/04/17 (*)] Medical Decision Making - Diagnostics EKG Interpretation: EKG interpreted by me reveals normal sinus rhythm, rate 63, no ST or T segment changes. ED Course/Re-evaluation: This patient presents with known coronary artery disease and recent stenting presents with chest pain. Stat EKG reveals no evidence of ischemia or dysrhythmia. However, symptoms are quite concerning for recurrent ACS, stent blockage. Initial troponin is unremarkable. Chest pain has resolved. panel monitor: NSR throughout. The hospitalist service was consulted for admission. Dr. Wally Lloyd was consulted and will see the patient in the PCU. Differential Diagnosis: Differential diagnosis includes though it is not limited to pneumonia, pneumothorax, pulmonary embolism, aortic dissection, pericarditis, acute coronary syndrome. - Data Points Laboratory Results: Laboratory Results 10/04/17 11:40 10/04/17 11:40 Medications Given: Discontinued Medications Famotidine/Sodium Chloride (Pepcid 20 Mg (Premix)) 50 mls @ 200 mls/hr IV EDNOW ONE Stop: 10/04/17 13:14 Last Admin: 10/04/17 13:08 Dose: 50 mls Departure - Departure Disposition: [facility] Inpatient Acute Clinical Impression: Chest pain Qualifiers: Chest pain type: precordial pain Qualified Code(s): R07.2 - Precordial pain Condition: Fair
[2017-10-04] MEDS ORDERED: FAMOTIDINE 20 MG/NACL 50 ML IV ONE (13:00)
[2017-10-04] MEDS ORDERED: FAMOTIDINE 20 MG/NACL/50 ML BAG IV ONE (13:06)
--- NOTE | 2017-10-04 13:38 | GCON ---
[f rep st] CONSULTATION CARDIOLOGY CONSULT DATE OF CONSULTATION: 10/04/2017 CHIEF COMPLAINT: Chest pain/lightheadedness. HISTORY OF PRESENT ILLNESS: This is a 47-year-old male who recently underwent PCI to his left circum flex artery approximately 3 weeks ago. 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 He indicated that this was definitely different marisa n his symptoms from his ACS 3 weeks ago prior to his stent placement in his left circumflex artery. The patient was concerned enough to come to the emergency room for further evaluation. Upon arrival to the ER, the patient is completely asymptomatic currently, feeling well. Blood pressu re, heart rate are currently stable. ECG shows normal sinus rhythm with no acute ST changes. Tropon in 1st set is negative. PAST MEDICAL HISTORY: Significant for coronary artery disease status post recent PCI to the left cir cumflex artery by Dr. Michelle. The patient also has a history of hypertension, hyperlipidemia. HOME MEDICATIONS: Consist of amlodipine, Brilinta, Toprol-XL, atorvastatin, aspirin, losartan. SOCIAL HISTORY: He is . No smoking. He does drink alcohol occasionally. FAMILY HISTORY: Noncontributory. REVIEW OF SYSTEMS: Patient currently denies any vision changes. No headache. No palpitations. No neck pain. No back pain. No abdominal pain. No lower extremity pain. No neurologic deficits. PHYSICAL EXAMINATION: VITAL SIGNS: Afebrile 96, BP 140/70, heart rate 72, respirations 12, saturati on 95% on room air. HEENT: Pupils equal and react to light and accommodation. CARDIOVAS CULAR: Regular rate and rhythm. S1, S2. LUNGS: Clear to auscultation bilaterally. ABDOMEN: Soft , nontender, no guarding. EXTREMITIES: No clubbing, no cyanosis, no edema. NEUROLOGIC: Alert, aimee ented x3. LABORATORY VALUES: Currently show troponins negative x1 set. Creatinine 1.3, BUN 20, sodium 147. W [place] count 8.9, hemoglobin 15.1, platelets 204. ASSESSMENT/PLAN: Lightheadedness/chest pain. At this time, the patient indicates his pain is comple tely resolved. He indicates that his substernal discomfort was different than his acute coronary syn drome pain from 3 weeks ago. The episode the patient had today could be from a vagal episode versus underlying acid reflux. Will give the patient a dose of Pepcid 20 mg IV now and check a cardiac echo . If the echo appears to be grossly normal, [facility] be [facility] the patient follow up as an outpatient. /[id number]/MODL
[2017-10-04 13:52] VITALS: BP 133/86
--- NOTE | 2017-10-04 14:47 | ECHO ---
[email or web address] [place] [id number] Main: [phone] Fax: Transthoracic Echocardiogram Name: ILANA OSULLIVAN MR#: [id number] Study Date: 10/04/2017 Study Time: 01:26 PM Date of : 1970 Age: 47 year(s) Height: 182.9 cm (72 in.) Weight: 100.24 kg (221 lb.) BSA: 2.22 m2 Gender: Male Examination: Limited Echo Indication: Image Quality: Adequate Contrast: Requested by: Emory Rubio BP: 146 mmHg/94 mmHg Heart Rate: Rhythm: Indication: Procedure Staff Nutrition Aide: Erlinda Brennan [facility] Reading Physician: Emory Rubio MD Requesting Provider: Conclusions: Normal global systolic LV function. The ejection fraction is visually estimated to be 60 %. Mild mitral valve regurgitation is present. Trivial aortic valve regurgitation. Measurements: Chambers Valvular Assessment AV/MV Valvular Assessment TV/PV Normal Normal Normal Name Value Range Name Value Range Name Value Range LVEF (BP): 63 % (>=55 %) Visual EF: 60 % Continued Measurements: Findings: Left Ventricle: Normal size left ventricle. Normal global systolic LV function. The ejection fraction is visually estimated to be 60 %. No regional wall motion abnormality. Mitral Valve: The mitral valve is normal in appearance. No mitral stenosis is present. Mild mitral valve regurgitation is present. Aortic Valve: There is no significant aortic valve regurgitation. No aortic valve stenosis is present. Trivial aortic valve regurgitation. Pericardium: No pericardial effusion. Exam Comments: Patient: ILANA OSULLIVAN Study Date: 10/04/2017 Page 1 of 2 01:26 PM (No Signature Object) Patient: ILANA OSULLIVAN Study Date: 10/04/2017 Page 2 of 2 01:26 PM [id number]
--- NOTE | 2017-10-04 16:09 | GHP ---
[f rep st] HISTORY AND PHYSICAL DATE OF ADMISSION: 10/04/2017 HISTORY OF PRESENT ILLNESS: The patient is a very pleasant 47-year-old gentleman with recent stent p lacement 3 weeks ago. He presents with chest pain that was burning in the center of his chest. 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 This differs from his anginal type symptoms that felt like a pressure inside his chest. The patient's symptoms were not accompanied by shortness of breath, diaphoresis, or radiation to his arm or jaw. Initial troponin was unremarkable and EKG was nonischemic. He was seen by Cardiology, w ho recommended a stat echocardiogram, and if normal, he could be discharged. Notably, the echocardio gram was normal. REVIEW OF SYSTEMS: Complete 10-point review of systems conducted, negative except as noted in the HP I. PAST MEDICAL HISTORY: Hypertension, coronary artery disease, gout. ALLERGIES: No known drug allergies. HOME MEDICATIONS: Amlodipine, aspirin, atorvastatin, losartan, metoprolol, nitroglycerin, and Brilin ta. 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 He is a nonsmoker. FAMILY HISTORY: Notable for early coronary disease. PHYSICAL EXAMINATION: VITAL SIGNS: Presenting: Temp 36.6, blood pressure 162/90, now 133/86, pulse 53 to 67, breathing 18 times a minute, 97% on room air. GENERAL: No acute distress. HEENT: Sclera e anicteric. Oropharynx clear. Mucous membranes moist. NECK: Supple without lymphadenopathy or JV D. LUNGS: Clear to auscultation bilaterally. HEART: S1, S2. ABDOMEN: Soft, nontender, nondistend ed. LOWER EXTREMITIES: Without edema, calves nontender. SKIN: Without rash. NEUROLOGIC: Nonfoca l. LAB: CBC normal. D-dimer is normal. Sodium 147, potassium 4.1, chloride 106, bicarb 26, BUN 20, cr eatinine 1.3, this is about his baseline. Troponin less than 0.012. Troponin was 0.5 during his [facility] admission. His EKG, interpreted by me, sinus at 63 with normal axis and intervals. No ST or T-wave changes. Echocardiogram shows no wall motion abnormalities. Trivial mitral regurgitation. I have discussed the case with Dr. Azra Juarez. ASSESSMENT/PLAN: A 47-year-old gentleman with noncardiac chest pain and coronary artery disease. Noncardiac chest pain. The patient has a nonischemic EKG, negative troponin, normal echo, and he has a reasonably attributable alternative cause. He has a normal D-dimer. We will discharge him home t hope. Let this serve as his discharge summary. /[id number]/MODL
== END 2017-10-04 16:55 | disposition home or self-care (01) ==
LOC: UNDOADMOB 12:51 → F2W 13:38
PROVIDERS: ADMIT Internal Medicine; ATTEND Internal Medicine
DX: R07.9 Chest pain, unspecified (principal); I25.10 Atherosclerotic heart disease of native coronary artery without angina pectoris; I10 Essential (primary) hypertension; E78.5 Hyperlipidemia, unspecified; M10.9 Gout, unspecified; Z79.82 Long term (current) use of aspirin; Z87.891 Personal history of nicotine dependence; Z82.49 Family history of ischemic heart disease and other diseases of the circulatory system; Z95.5 Presence of coronary angioplasty implant and graft
CPT/HCPCS: 96374; G0378

== ENCOUNTER → 2018-05-23 | Outpatient (CLI) | payer OTHER ==
--- NOTE | 2018-05-27 13:42 | CPEEG ---
ELECTROENCEPHALOGRAM DATE OF STUDY: 05/23/2018 DATE OF INTERPRETATION: 05/27/2018. DATE OF STUDY: 05/23/2018. INTERPRETATION: Normal EEG during wakefulness and sleep. There were no potentially epileptogenic ab normalities present in the recording. REPORT: This EEG contains 10 Hz alpha activity to the posterior head regions. There was no abnormal activation at rest, during photic stimulation, or hyperventilation. The patient became drowsy and f ell asleep during the study. There was no abnormal activation during drowsiness, sleep, or during ti mes of arousal. /[id number]/MODL
== END ==
LOC: FCPNEURO 12:43
PROVIDERS: ATTEND Psychiatry & Neurology Neurology
DX: R41.3 Other amnesia (principal)

== ENCOUNTER → 2018-09-05 | Outpatient (CLI) | payer OTHER | LOC: CIMAGING 14:14 | PROVIDERS: ATTEND Family Medicine | DX: M54.5 Low back pain (principal) | CPT/HCPCS: 72100-PO ==